=== PATIENT | male | born 1990 | race Caucasian/White ===

== ENCOUNTER 2016-07-13 12:59 | Emergency (ER) | payer OTHER ==
[~2016-07-13] VITALS: Ht 165.1 cm; Wt 72.6 kg
[~2016-07-13 12:59] MED LIST: PROAIR HFA0.09 MG/Ac
[2016-07-13 13:03] VITALS: BP 127/81
[2016-07-13] MEDS ORDERED: VENTOLIN H0.09 MG/Ac IH (13:05)
--- NOTE | 2016-07-13 13:07 | NUR ---
Dr. Koenig evaluating patient in triage.
--- NOTE | 2016-07-13 13:09 | NUR ---
Patient ambulated to bed 04.
[2016-07-13] MEDS ORDERED: ALBUTEROL 0.083% 2.5 MG/3 ML NEBU INH ONE ×2 (13:15→15:20)
[2016-07-13] MEDS ORDERED: IPRATROPIUM 0.02% 0.5 MG/2.5 ML NEBU INH ONE ×2 (13:15→15:20)
[2016-07-13] MEDS ORDERED: DEXAMETHASONE 10 MG/ML VIAL IVP ONE (13:15)
[2016-07-13] MEDS ORDERED: MAG SULF 2000 MG/WATER PREMIX 50 ML IV ONE (13:20)
--- NOTE | 2016-07-13 13:24 | NUR ---
RT at bedside to give breathing treatment.
--- NOTE | 2016-07-13 13:30 | NUR ---
PATIENT PRESENTS TO ED WITH C/O ASTHMA SINCE LAST NIGHT, PT. STATES NEBULIZER HASNT HELPED; DENIES N/V/D; SKIN IS PINK/WARM/DRY; AAOX4 WITH EVEN AND STEADY GAIT; LUNGS CLEAR BL; HR EVEN AND REGULAR; PT DENIES ANY FEVER, CP, OR COUGH AT THIS TIME; PATIENT STATES PAIN OF 0/10 AT THIS TIME; VSS; PATIENT POSITIONED FOR COMFORT; HOB ELEVATED; BEDRAILS UP X2; BED DOWN. ER MD MADE AWARE OF PT STATUS.
--- NOTE | 2016-07-13 15:08 | NUR ---
Dr. Koenig evaluating patient at bedside.
--- NOTE | 2016-07-13 15:23 | NUR ---
RT at bedside to give patient breathing treatment.
[2016-07-13 15:45] VITALS: BP 131/88
--- NOTE | 2016-07-13 15:45 | NUR ---
Patient discharged with v/s stable. Written and verbal after care instructions given and explained. Patient alert, oriented and verbalized understanding of instructions. Ambulatory with steady gait. All questions addressed prior to discharge. ID band removed. Patient advised to follow up with PMD. Rx of ALBUTEROL INHALER, PREDNISONE, AZITHROMYCIN given. Patient educated on indication of medication including possible reaction and side effects. Opportunity to ask questions provided and answered.
--- NOTE | 2016-07-13 15:51 | NUR ---
AAO PT SPO2 ON ROOM AIR 98%, LEFT ON ROOM AIR
== END 2016-07-13 15:45 | disposition home or self-care (01) ==
LOC: MED 12:59
DX: J45.901 Unspecified asthma with (acute) exacerbation (principal)
CPT/HCPCS: 96365; 96366; 96375; 99285; J1100; J3475; J7613; J7644

== ENCOUNTER 2016-11-05 19:38 | Emergency (ER) | payer OTHER ==
[~2016-11-05] VITALS: Ht 165.1 cm; Wt 72.6 kg
[~2016-11-05 19:38] MED LIST changes: +ALBU0.0912 IH; -PROAIR HFA0.09 MG/Ac
[2016-11-05 19:43] VITALS: BP 120/68
--- NOTE | 2016-11-05 21:54 | NUR ---
PATIENT LEFT WITHOUT BEING SEEN BY DR. vaughn. NO FURTHER CARE PROVIDED FOR PATIENT.
== END 2016-11-05 21:54 | disposition left against medical advice (07) ==
LOC: MED 19:38
DX: F41.9 Anxiety disorder, unspecified (principal); Z53.21 Procedure and treatment not carried out due to patient leaving prior to being seen by health care provider

== ENCOUNTER 2017-03-13 03:05 | Emergency (ER) | payer OTHER ==
[~2017-03-13] VITALS: Ht 162.6 cm; Wt 73.2 kg
[2017-03-13 03:09] VITALS: BP 116/66
--- NOTE | 2017-03-13 03:14 | NUR ---
AMBULATED TO ER BED11
--- NOTE | 2017-03-13 03:18 | NUR ---
27/M C/O 02/10 EPIGASTRIC PAIN, ACUTE ONSET,NONRADIATING X 1 HOUR AGO. PT REPORTS HE WOKE UP WITH PAIN AND TOOK TRAMADOL 50MG X 30 MINS AGO, DENIES RELIEF. BS ACTIVE X4, ABD SOFT, FLAT, NONTENDER. DENIES N/V/D, FEVER/CHILLS. PMH: ASTHMA, GALLSTONES
[2017-03-13] MEDS ORDERED: DICYCLOMINE HCL LIQUID 10 MG/5 ML UDC PO ONE (03:30)
[2017-03-13] MEDS ORDERED: ALUMINUM HYD/MAG/SIMETHICONE 30 ML UDC PO ONE (03:30)
[2017-03-13] MEDS ORDERED: LIDOCAINE VISCOUS 2% 20 ML UDC PO ONE (03:30)
[2017-03-13] MEDS ORDERED: NACL 0.9% 500 ML IV ONE (03:46)
[2017-03-13] MEDS ORDERED: KETOROLAC 30 MG/ML VIAL IVP ONE (03:50)
[2017-03-13] MEDS ORDERED: ONDANSETRON 4 MG/2 ML VIAL IVP ONE (03:50)
[2017-03-13 03:58] LABS: BASOPHILS # (AUTO) 0.4 K/uL (0.00-0.22); BASOPHILS % (AUTO) 4.6 % (0.0-2.0); EOSINOPHILS # (AUTO) 0.7 K/uL (0-0.4); EOSINOPHILS % (AUTO) 7.6 % (0.0-4.0); HEMATOCRIT 47.5 % (36-52); HEMOGLOBIN 15.6 g/dL (12.0-18.0); LYMPHOCYTES # (AUTO) 2.5 K/uL (2.0-11.5); LYMPHOCYTES % (AUTO) 27.7 % (20.5-51.1); MEAN CORPUSCULAR HEMOGLOBIN 28 pg (27-31); MEAN CORPUSCULAR HGB CONC 33 g/dL (33-37); MEAN CORPUSCULAR VOLUME 85 fL (80-94); MONOCYTES # (AUTO) 1.1 K/uL (0.8-1.0); MONOCYTES % (AUTO) 11.9 % (1.7-9.3); NEUTROPHILS # (AUTO) 4.2 K/uL (1.8-7.7); NEUTROPHILS % (AUTO) 48.2 % (42.2-75.2); PLATELET COUNT (AUTO) 310 K/uL (140-450); RED BLOOD CELL COUNT(AUTO) 5.59 MIL/uL (4.20-6.10); RED CELL DISTRIBUTION WIDTH 12.7 % (11.6-13.7); WHITE BLOOD COUNT (AUTO) 8.9 K/uL (4.8-10.8)
[2017-03-13 04:14] LABS: ANION GAP 10.3 (8-16); CARBON DIOXIDE 29.3 mmol/L (21-32); CREATININE 0.8 mg/dL (0.7-1.3); POTASSIUM 3.6 mmol/L (3.5-5.1)
[2017-03-13 04:19] LABS: ALBUMIN 3.9 g/dL (3.4-5.0); TOTAL BILIRUBIN 0.2 mg/dL (0.0-1.0)
[2017-03-13] MEDS ORDERED: METOCLOPRAMIDE 10 MG/2 ML INJ VIAL IVP ONE ×2 (04:40)
--- NOTE | 2017-03-13 04:47 | NUR ---
ULTRASOUND AT BEDSIDE
[2017-03-13] MEDS ORDERED: LORazepam 2 MG/ML VIAL IVP ONE (05:10)
--- NOTE | 2017-03-13 05:22 | NUR ---
PT STARTED W C/O WHEEZING/SOB- O2 SAT 88% ON RA,86HR. ALL LUNG SOUNDS CLEAR THROUGHOUT, WITH AUDIBLE WHEEZING NOTED. PT PLACED ON 2LPMMASSIMO BARCLAY ER MD EVALUATING PT AT BEDSIDE Addendum: 03/13/17 at 0538 by GENESIS PT SATS 96% ON 2LPM VIA NC, 86 HR. PT REPORTS FEELING BETTER
[2017-03-13] MEDS ORDERED: ALBUTEROL SULFATE/IPRATROPIU 3 ML SOL IH ONE (05:30)
--- NOTE | 2017-03-13 05:39 | NUR ---
RT AT BEDSIDE
[2017-03-13] MEDS ORDERED: methylPREDNISolone SS 125 MG/2 ML VIAL IVP ONE (05:45)
--- NOTE | 2017-03-13 05:53 | NUR ---
ALL LUNG SOUNDS CBTA, NO FUTHER WHEEZING NOTED, 20RR EVEN AND UNLABORED, SATS 99% ON 2LPM NC, 92HR EVEN AND REGULAR. PT STATES "IM FEELING BETTER"
--- NOTE | 2017-03-13 06:20 | NUR ---
Patient discharged with v/s stable. Written and verbal after care instructions given and explained. Patient alert, oriented and verbalized understanding of instructions. Ambulatory with steady gait. All questions addressed prior to discharge. ID band removed. Patient advised to follow up with PMD. Rx of ZOFRAN, PREDNISONE, NORCO given. Patient educated on indication of medication including possible reaction and side effects. Opportunity to ask questions provided and answered. IV removed, catheter intact and site benign. Applied folded 4x4 gauze and tape to stop bleeding.
[2017-03-13 06:26] VITALS: BP 123/76
== END 2017-03-13 06:20 | disposition home or self-care (01) ==
LOC: MED 03:05
DX: K80.80 Other cholelithiasis without obstruction (principal); J45.901 Unspecified asthma with (acute) exacerbation; F41.9 Anxiety disorder, unspecified; R03.0 Elevated blood-pressure reading, without diagnosis of hypertension; Z79.899 Other long term (current) drug therapy
CPT/HCPCS: 36415; 76705; 80053; 83690; 84484; 85025; 94640; 96361; 96374; 96375; 99285; J1885; J2060; J2405; J2765; J2930; J7030; J7620; Q0092

== ENCOUNTER 2019-05-07 22:53 | Emergency (ER) | payer OTHER ==
[~2019-05-07] VITALS: Ht 165.1 cm; Wt 72.6 kg
[2019-05-07 22:55] VITALS: BP 125/76
--- NOTE | 2019-05-07 22:58 | NUR ---
TO LOBBY A/W BED AMBULATORY
--- NOTE | 2019-05-07 23:13 | NUR ---
ASSEMBLY INSPECTOR CALLED FOR PT IN ER LOBBY. NO ANSWER, PT LWBS AT [phone].
--- NOTE | 2019-05-07 23:26 | NUR ---
CALLED FOR PT, NO ANSWER IN ER LOBBY OR OUTSIDE OF ER. PT LWBS
--- NOTE | 2019-05-07 23:33 | NUR ---
CALLED FOR PT, NO ANSWER IN ER LOBBY OR OUTSIDE OF ER. PT LWBS
== END 2019-05-07 23:13 | disposition left against medical advice (07) ==
LOC: MED 22:53
DX: J02.9 Acute pharyngitis, unspecified (principal); Z53.21 Procedure and treatment not carried out due to patient leaving prior to being seen by health care provider

== ENCOUNTER 2020-11-15 10:37 | Emergency (ER) | payer MEDICAID, OTHER ==
[~2020-11-15] VITALS: Ht 167.6 cm; Wt 73.9 kg
[2020-11-15 10:43] VITALS: BP 140/71
--- NOTE | 2020-11-15 10:46 | NUR ---
Patient ambulated with steady gait to bed 4.
[2020-11-15] MEDS ORDERED: KETOROLAC 30 MG/ML VIAL IVP ONE (11:00)
[2020-11-15] MEDS ORDERED: NACL 0.9% 1,000 ML IV ONE (11:00)
--- NOTE | 2020-11-15 11:10 | NUR ---
C/O FEELING WEAK & DIZZY FOR THE PAST FEW DAYS, HAPPENED WHILE AT WORK. PT STATES YESTERDAY HE FELT VERY FAINT BUT DENIES ANY SYNCOPE. PT ALSO C/O INTERMITTENT HEADACHE TO RIGHT POSTERIOR X 3 WEEKS WITH NO RELIEF. HX DENIES
--- NOTE | 2020-11-15 11:11 | NUR ---
PT TAKEN TO CT SCAN AT THIS TIME
--- NOTE | 2020-11-15 11:14 | NUR ---
Patient returned back from CT scan to bed 4.
[2020-11-15 11:23] LABS: BASOPHILS % (AUTO) 0.5 % (0.0-2.0); EOSINOPHILS # (AUTO) 0.3 K/uL (0-0.4); EOSINOPHILS % (AUTO) 4.3 % (0.0-4.0); HEMATOCRIT 48.8 % (36-52); HEMOGLOBIN 16.4 g/dL (12.0-18.0); LYMPHOCYTES # (AUTO) 1.6 K/uL (2.0-11.5); LYMPHOCYTES % (AUTO) 21.9 % (20.5-51.1); MEAN CORPUSCULAR HEMOGLOBIN 29 pg (27-31); MEAN CORPUSCULAR HGB CONC 34 g/dL (33-37); MEAN CORPUSCULAR VOLUME 85.1 fL (80-94); MONOCYTES # (AUTO) 0.6 K/uL (0.8-1.0); MONOCYTES % (AUTO) 8.7 % (1.7-9.3); NEUTROPHILS # (AUTO) 4.6 K/uL (1.8-7.7); NEUTROPHILS % (AUTO) 64.6 % (42.2-75.2); PLATELET COUNT (AUTO) 293 K/uL (140-450); RED BLOOD CELL COUNT(AUTO) 5.73 MIL/uL (4.20-6.10); RED CELL DISTRIBUTION WIDTH 13.3 % (11.6-13.7); WHITE BLOOD COUNT (AUTO) 7.1 K/uL (4.8-10.8)
[2020-11-15 11:33] LABS: ANION GAP 10.8 (8-16); CARBON DIOXIDE 28.2 mmol/L (21-32); CREATININE 0.8 mg/dL (0.6-1.3)
[2020-11-15 11:48] LABS: FREE T4 (FREE THYROXINE) 0.92 ng/dL (0.76-1.46); MAGNESIUM 2.3 mg/dL (1.8-2.4); THYROID STIMULATING HORMONE 1.54 uIU/mL (0.34-3.74)
[2020-11-15] MEDS ORDERED: ALUMINUM HYD/MAG/SIMETHICONE 30 ML, DICYCLOMINE HCL LIQUID 20 MG, LIDOCAINE VISCOUS 2% ... PO ONE ×3 (11:55)
[2020-11-15] MEDS ORDERED: ALUMINUM HYD/MAG/SIMETHICONE 30 ML UDC ONE (11:57)
[2020-11-15] MEDS ORDERED: DICYCLOMINE HCL LIQUID 10 MG/5 ML UDC ONE (11:58)
[2020-11-15] MEDS ORDERED: FAMO-90 PO (12:35)
[2020-11-15] MEDS ORDERED: ONDA-24 SL (12:35)
[2020-11-15] MEDS ORDERED: AMOX-1000 PO (12:35)
[2020-11-15 12:52] VITALS: BP 140/71
--- NOTE | 2020-11-15 12:53 | NUR ---
Patient discharged with v/s stable. Written and verbal after care instructions given and explained. Patient alert, oriented and verbalized understanding of instructions. Ambulatory with steady gait. All questions addressed prior to discharge. ID band removed. Patient advised to follow up with PMD. Rx of AMOXICILLIN,FAMOTIDINE, ONDANSETRON given. Patient educated on indication of medication including possible reaction and side effects. Opportunity to ask questions provided and answered.
== END 2020-11-15 12:53 | disposition home or self-care (01) ==
LOC: MED 10:37
DX: J32.9 Chronic sinusitis, unspecified (principal); R42 Dizziness and giddiness; J45.909 Unspecified asthma, uncomplicated
CPT/HCPCS: 36415; 70450; 80048; 83735; 84439; 84443; 84484; 85025; 93005; 96361; 96374; 99285; J1885; J7030

== ENCOUNTER 2020-11-18 21:58 | Emergency (ER) | payer MEDICAID ==
[~2020-11-18] VITALS: Ht 170.2 cm; Wt 73.9 kg
[~2020-11-18 21:58] MED LIST changes: +AMOX-1000 PO; +FAMO-90 PO; +ONDA-24 SL
[2020-11-18 22:08] VITALS: BP 122/80
--- NOTE | 2020-11-18 23:30 | NUR ---
PATIENT AMBUALTED TO BED 9 WITH STEADY GAIT.
--- NOTE | 2020-11-18 23:45 | NUR ---
30/M ESTEFANIT BIB SELF FOR C/O POSSIBLE ETOH WITHDRAWAL X 3 DAYS. PATIENT STATES HAS FEELINGS OF ANXIETY, PARANOIA, MUSCLE SPASMS, AND HEADACHES. PATIENT STOPPED DRINKING X 3 DAYS AGO. PATIENT STATES DRANK ALMOST DAILY X 6 YEARS. PMH: ASTHMA NKDA
--- NOTE | 2020-11-19 00:35 | NUR ---
Patient being evaluated by physician at bedside.
[2020-11-19] MEDS ORDERED: LIB25 PO (00:47)
[2020-11-19] MEDS ORDERED: ATA25 PO (00:47)
--- NOTE | 2020-11-19 00:58 | NUR ---
Patient discharged with v/s stable. Written and verbal after care instructions given and explained. Patient alert, oriented and verbalized understanding of instructions. Ambulatory with steady gait. All questions addressed prior to discharge. ID band removed. Patient advised to follow up with PMD. Rx of LIBRIUM, ATARAX given. Patient educated on indication of medication including possible reaction and side effects. Opportunity to ask questions provided and answered.
[2020-11-19 00:59] VITALS: BP 122/80
== END 2020-11-19 00:58 | disposition home or self-care (01) ==
LOC: MED 21:58
DX: F10.10 Alcohol abuse, uncomplicated (principal); F41.9 Anxiety disorder, unspecified
CPT/HCPCS: 99283

== ENCOUNTER 2021-07-01 11:25 | Emergency (ER) | payer MEDICAID, OTHER ==
[~2021-07-01] VITALS: Ht 167.6 cm; Wt 74.4 kg
[~2021-07-01 11:25] MED LIST changes: +ATA25 PO; +LIB25 PO; +ONDA-188 SL; -ONDA-24 SL
[2021-07-01 11:31] VITALS: BP 127/79
--- NOTE | 2021-07-01 11:37 | NUR ---
PT AMBULATED TO BED 08.
--- NOTE | 2021-07-01 12:15 | NUR ---
31/M BIB SELF TO ED WITH C/O BACK PAIN X5 DAYS. DENIES RECENT INJURY OR TRAUMA, STATES HE HAS BEEN DEALING WITH THIS ISSUE FOR "MONTHS" STATING PAIN IS PRIMARILY IN HIS LEFT LOWER BACK, STATING "I FEEL LIKE MY BACK LOCKS SOMETIMES." PATIENT STATES PAIN HAS WORSENED IN THE PAST WEEK, DENIES TAKING ANYTHING FOR PAIN, DENIES DYSURIA, FEVER, CHILLS, N/V/D.
[2021-07-01] MEDS ORDERED: METH-1681 PO (13:27)
[2021-07-01] MEDS ORDERED: NAPR-54 PO (13:27)
[2021-07-01 13:36] VITALS: BP 123/70
--- NOTE | 2021-07-01 13:36 | NUR ---
Patient discharged with v/s stable. Written and verbal after care instructions ABOUT BACK EXERCISES AND MUSCLE STRAIN given and explained. Patient alert, oriented and verbalized understanding of instructions. Ambulatory with steady gait. All questions addressed prior to discharge. ID band removed. Patient advised to follow up with PMD. Rx of NAPROSYN AND ROBAXIN given. Patient educated on indication of medication including possible reaction and side effects. Opportunity to ask questions provided and answered.
== END 2021-07-01 13:36 | disposition home or self-care (01) ==
LOC: MED 11:25
DX: S39.012A Strain of muscle, fascia and tendon of lower back, initial encounter (principal); X58.XXXA Exposure to other specified factors, initial encounter; Y93.89 Activity, other specified; Y92.89 Other specified places as the place of occurrence of the external cause; Y99.8 Other external cause status
CPT/HCPCS: 72110; 81002; 99283